=== PATIENT | female | born 1975 | race Caucasian/White ===

== ENCOUNTER 2016-10-23 19:01 | Inpatient (IN) | payer OTHER ==
[~2016-10-23] VITALS: Ht 167.6 cm; Wt 73.0 kg
[~2016-10-23 19:01] MED LIST: AMB5 PO; COL100 PO; MOM PO; MYL80 CH; REGL PO
--- NOTE | 2016-10-23 19:15 | NUR ---
REC'D A 41 Y/O FEMALE BIB [facility] FOR ALOC. PER MEDIC, FAMILY STS PT COLLAPSED TO FLOOR WHILE TRYING TO GIVE A FAMILY MEMBER A HUG. PER MEDIC, UPON ARRIVAL PT WITH AGONAL RESPS AT 4 BREATHS PER MIN AND O2 SAT <50%. BVM WAS INTIATED THROUGH NPA AND NARCAN 4MG IVP WAS GIVEN. PER MEDIC, PT BECAME MORE AROUSABLE S/P NARCAN ADMINISTRATION BUT STILL UNRESPONSIVE TO VERBAL OR PAINFUL STIMULI. UPON ARRIVAL TO ED, PT ALOC, TACHYPNEIC BUT RESPS EVEN AND UNLABORED. PT PLACED ON SUPERVISOR ELECTRON TUBE PROCESSING AND PULSE OX AT 98%. MSE COMPLETED BY DR LIN. WILL CARRY OUT ORDERS.
--- NOTE | 2016-10-23 19:30 | NUR ---
PT MEDICATED PER ORDER. PLEASE SEE EMAR.
[2016-10-23 19:42] LABS: BASOPHIL % 0.3 % (0-2); PLATELET COUNT 342 x10^3mcL (130-400); RED CELL DISTRIBUTION WIDTH 18.7 % (11.5-14.5)
--- NOTE | 2016-10-23 19:45 | NUR ---
PT RESTLESS, ATTEMPTING TO GET OFF GURNEY AND ALOC. PT FALL RISK. PER DR DELIA DAVIDSON, PLACE PT IN SOFT WRIST RESTRAINTS.
[2016-10-23 19:50] LABS: CALCIUM 8.2 mg/dL (8.5-10.1); CARBON DIOXIDE 24.3 mmol/L (21-32); CHLORIDE SERUM 105 mmol/L (98-107); GFR1 > 60 mL/min; GLUCOSE SERUM 182 mg/dL (74-106); POTASSIUM SERUM 4.4 mmol/L (3.5-5.1); SODIUM SERUM 140 mmol/L (136-145)
[2016-10-23 19:58] LABS: ALKALINE PHOSPHATASE 58 U/L (46-116); ALT/SGPT 22 U/L (14-59); AST/SGOT 28 U/L (15-37); BILIRUBIN TOTAL 0.2 mg/dL (0.20-1.00); TOTAL PROTEIN, SERUM 7.3 g/dL (6.4-8.2)
[2016-10-23 19:59] LABS: ALBUMIN 3.3 g/dL (3.4-5.0); CHOLESTEROL 290 mg/dL (<200)
--- NOTE | 2016-10-23 19:59 | NUR ---
PT TAKEN TO RADIOLOGY VIA [facility] FOR CT EXAM
--- NOTE | 2016-10-23 20:22 | NUR ---
PT ARRIVED BACK FROM CT EVEN MORE RESTLESS AND MAKING INCOMPREHENSIBLE WORDS AND SOUNDS. PT MEDICATED PER ORDER. PLEASE SEE EMAR.
--- NOTE | 2016-10-23 20:48 | NUR ---
PT STARTING TO TALK AND STS SHE TOOK 15 SEROQUEL DUE TO UNKNOWN REASON. PT DENIES SUICIDAL IDEATION. DR LIN INFORMED.
--- NOTE | 2016-10-23 21:25 | NUR ---
PT ASLEEP ON GURNEY IN POSITION OF COMFORT. RESPS EVEN AND UNLABORED. PT ON HYDROPRESS OPERATOR AND PULSE OX. WILL CONT TO MONITOR.
[2016-10-23 21:33] LABS: UA SPECIFIC GRAVITY >=1.030 (1.005-1.035); microscopic required? YES; urine erythrocyte NEGATIVE (NEGATIVE)
[2016-10-23 21:59] LABS: AMPHETAMINE QUAL UR NONE DETECTED (NEG <=1000)
--- NOTE | 2016-10-23 22:17 | NUR ---
HEARD PT YELLING OUT FOR NURSE. WENT IN TO ROOM TO FIND PT SITTING AT EDGE OF [place] WITH RESTRAINTS TAKEN OFF. PT REQUESTING WATER. INSTRUCTED TO TO LAY BACK ON [facility] FOR SAFETY. PT VERBALIZED UNDERSTANDING. PT MOVED TO BED 3 IN CLOSER VIEW OF NURSES STATION. PT ON PNEUMATIC TUBE FITTER AND PULSE OX. PT VERBALIZED WILL STAY ON [place].
--- NOTE | 2016-10-23 23:14 | NUR ---
REPORT CALLED TO MARTA BLACKMON TO ASSUME CARE OF PT ON TELE.
--- NOTE | 2016-10-23 23:20 | NUR ---
PT TRAMSFERRED TO TELE
--- NOTE | 2016-10-23 23:22 | NUR ---
RECEIVED FROM ER,PUT IN ROOM 242B,ALOC.
[2016-10-23 23:34] VITALS: BP 104/60
--- NOTE | 2016-10-23 23:50 | NUR ---
PATIENT ADMITTED AT 2322.PATIENT IS ALOC.REPORT FROM ER SHE TOOK [address]BUT THEN TOLD [address] BALL SHE TOOK SOMETHING ELSE.UDS IN ER SHOWS OPIATES.ANSWRS QUESTION,SAYS SHE IS IN THE HOSPITAL.MED HX OF BIPOLAR,HEP C.MOTHER CHADWICK CALLED AT THIS TIME,SHE DOES NOT LIVE WITH PATIENT,DID NOT REALLY KNOW WHAT HAPPENED.DR BALL ALREADY TALKED TO PATIENT.WILL FOLLOW UP ADMIT ORDER.WILL INITIATE PLAN OF CARE.
--- NOTE | 2016-10-24 00:14 | NUR ---
CHARGE NURSE LUCIANA MADE AWARE THAT THIS PATIENT IS ALTERED BUT SHE SAYS THAT SHE TOOK SEROQUEL,REPORT FROM ER,BUT THEN NOT SURE AGAIN WHAT MEDS.
--- NOTE | 2016-10-24 00:26 | NUR ---
PATIENT SAYS SHE WANTED TO EAT,REGULAR DIET.
--- NOTE | 2016-10-24 01:06 | NUR ---
NS AT 50 CC/ HOUR INFUSING WELL.
[2016-10-24 01:18] LABS: FREE T4 0.75 ng/dL (0.76-1.46); FREE THYROXINE INDEX 2.1 ug/dL (1.4-4.5); T4(THYROXINE) 6.9 ug/dL (4.7-13.3)
[2016-10-24 01:25] LABS: CHOLESTEROL/HDL RATIO 5.7
--- NOTE | 2016-10-24 02:28 | NUR ---
GIVEN SANDWICH AND SODA,STARVING SHE SAID.
[2016-10-24 02:42] LABS: T3 TOTAL 1.39 ng/mL
--- NOTE | 2016-10-24 04:46 | NUR ---
ASKED AT THIS TIME IF SHE REMEMBER ANYTHING BEFORE COMING TO HOSPITAL,SHE NO.SHE ALSO STATED SHE IS NOT DIABETIC.LIKES TO EAT,ALWAYS STARVING.
--- NOTE | 2016-10-24 04:54 | NUR ---
PATIENT HAS PAK CATH FROM ER,SHE DOES NOT LIKE IT,DISCONTINUED.ASSISTED IN RESTROOM,RUSHING TO GET UP,SITTER ASSISTED HER FOR SAFETY.
--- NOTE | 2016-10-24 04:57 | NUR ---
FOUND OUT SHE IS ON HER MONTHLY PERIOD.
[2016-10-24 05:02] VITALS: BP 101/51
--- NOTE | 2016-10-24 05:58 | NUR ---
PATIENT I AND O MEASURED.NS AT 50 CC/ HOUR.WILL ENDORSE TO NEXT SHIFT.STILL CANNOT REMEMBER ANYTHING HOW SHE GOT HERE.
--- NOTE | 2016-10-24 06:27 | NUR ---
LAB/PATIENT REFUSED AT THIS TIME,WILL TRY AGAIN LATER.
[2016-10-24 09:38] VITALS: BP 99/60
--- NOTE | 2016-10-24 13:13 | NUR ---
AT 0710 - RECEIVED PATIENT FROM NIGHT NURSE. PATIENT AWAKE, ALERT APPEARS FORGETFUL, BUT SPEECH CLEAR AND ABLE TO ANSWER QUESTIONS. CO-OPERATIVE AT THIS TIME. IV INFUSING NS AT 50ML/HR. 1:1 SITTER AT BEDSIDE. AT 0752 - SEEN BY DR BURDICK DURING MORNING ROUNDS. MEDICAL TEAM DOCTORS, SANDRA RODRIGUEZ AND MYSELF PRIMARY NURSE ALSO PRESENT. DR BURDICK SPOKE WITH PATIENT ABOUT WHAT MEDICATIONS SHE MAY HAVE TAKEN THAT BROUGHT HER TO HOSPITAL. PATIENT ADMITTED THAT SHE WAS TRYING TO HURT HERSELF. AT 0818 - RECEIVED CALL FROM GREG IN POISON CONTROL. UPDATED ON PATIENT CONDITION AND LATEST VS. PATIENT WILL BE RELEASED FROM POISON CONTROL BUT THEY CAN BE CONTACTED WITH ANY NEEDS. AT 1000 - PATIENT REMAINS QUIET AND COOPERATIVE. GOOD APPETITE. AT 1155 - IV FORM LAC CAME OUT. IV RESITED IN RFA AND IV IFNUSION OF NS RESUMED AT 50ML/HR.
--- NOTE | 2016-10-24 15:54 | NUR ---
SEEN BY DR VERA. PATIENT MEETS 5150 CRITERIA AND IS TO TRANSFER TO [facility] ONCE MEDICALLY CLEARED.
--- NOTE | 2016-10-24 17:55 | NUR ---
RECEIVED CALL FROM LETTY AT [facility] - THEY WILL NOT ACCEPT PATIENT ACCORDING TO THEM, SHE IS "PROGRAM INAPPROPRIATE".
--- NOTE | 2016-10-24 17:59 | NUR ---
PATIENT AWAKE AND MOSTLY CO-OPERATIVE BUT REFUSING TO HAVE VITAL SIGNS CHECKED. EATING WELL. IV INFUSING NS AT 50ML/HR. VOIDING IN BATHROOM. 1:1 SITTER REMAINS AT BEDSIDE. WILL ENDORSE CARE TO NIGHT NURSE.
--- NOTE | 2016-10-24 19:48 | NUR ---
RECEIVED REPORT FROM NEYMAR GONZALEZ. PT RESTING IN BED COMFORTABLY IN NO ACUTE DISTRESS OR DISCOMFORT. AAOX3. DENIES OF JAIME/DIZZINESS. ON TELE MON 4 SR. DENIES OF ANY CHEST DISCOMFORT. PER PULSES STRONG. NEG ON EDEMA. IN RA WTIH SAT OF 100%. BREATHING EVENLY AND UNLABORED. NO SOB NOTED. LUNGS CTA. BS ACTIVE. ABD SOFT AND NON DISTENDED. LAST BM TODAY 10/24/16. VOIDS FREELY TO THE BATHROOM WITHOUT ANY PAIN. GEN WEAKNESS. AMBULATES STEADILY. SKIN DRY AND INTACT. DENIES OF ANY PAIN. IV ON RFA PATENT. PT UNDER 5150 PER PSYCH EVALUATION. PT ON ONE TO ONE SITTER. ADMITS TO STILL BE HAVING AN ACTIVE PLAN OF SUICIDE WITH A STATEMENT OF "I JUST WANNA GO HOME AND TAKE MY PILLS". WILL CONT TO CLOSELY MONITOR PT. INSTRUCTED PT TO CALL FOR ANY NEEDS/ASSISTANCE OF IF SUICIDAL SYMPTOMS HAVE CHANGED OR GETTING WORSE. SAFETY MEASURES ENSURED. CALL LIGHT WITHIN REACH.
[2016-10-24 20:36] VITALS: BP 133/79
--- NOTE | 2016-10-25 05:00 | NUR ---
PT SLEPT COMFORTABLY THROUGH OUT THE NIGHT. ENFORCED 5150 PRECAUTION AND STAYED WITH ONE TO ONE SITTER. WAS IN NO ACUTE DISTRESS OR DISCOMFORT. SAFETY MEASURES WERE ENSURED. CALL LIGHT WITHIN REACH.
[2016-10-25 05:07] VITALS: BP 143/81
[2016-10-25 09:00] VITALS: BP 124/79
[2016-10-25 13:40] VITALS: BP 127/94
--- NOTE | 2016-10-25 13:41 | NUR ---
AT 0710 - RECEIVED PATIENT FROM NIGHT NURSE. PATIENT SLEEPING. RESPIRATIONS REGULAR. MONITOR SHOWING SINUS RHYTHM; RATE 80'S IV INFUSING NS AT 50ML/HR AT 0745 - PATIENT AWAKE, ALERT AND ORIENTED TO PERSON, PLACE AND TIME.HAS EATEN BREAKFAST. CO-OPERATIVE. 1:1 SITTER WITH PATIENT. 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 RECEIVED ORDERS FOR TREATMENT. AT 0900 - PATIENT SAID THAT SHE WANTED TO LEAVE THE HOSPITAL. SPOKE WITH HER ABOUT REASONS FOR STAYING. EXPLAINED TO PATIENT THAT THE PSYCHOLOGIST WANTS HER TO GO TO A [facility] FOR TREATMENT. SHE VERBALIZED UNDERSTANDING. AT 0955 - PATIENT SAID THAT SHE WANTED TO LEAVE A. CALL PLACED FOR DR BARTLETT. DR BARTLETT SPOKE WITH PATIENT AND PATIENT AGREED TO STAY. AT 1030 - MEDICATED WITHPO ATIVAN PER EMAR FOR SLIGHT RESTLESSNESS. ALSO NICODERM PATCH APPLIED TO SANTHOSH. PATIENT GIVEN CHLORHEXIDINE BODY WASH. AT 1230 - EATING LUNCH. APPEARS CALM AT THIS TIME.
--- NOTE | 2016-10-25 16:04 | NUR ---
QUIET AFTERNOON. PATIENT APPEARS TO BE SLEEPING A LOT OF THE TIME. VSS. PATIENT IS NOW OFF TELEMONITORING. STATUS CHANGED TO MED-SURG.
[2016-10-25 18:17] VITALS: BP 121/77
--- NOTE | 2016-10-25 18:44 | NUR ---
QUIET AFTERNOON. PATIENT APPEARS CALMA DN COOPERATIVE. HAS HAD 2 DOSES OF ATIVN PER EMAR. IV INFUSING NS AT 50ML/HR. AMBULATES IN ROOM. 1:1 SITTER REMAINS WITH PATIENT. WILL ENDORSE CARE TO NIGHT NURSE.
--- NOTE | 2016-10-25 19:36 | NUR ---
PT. AWAKE, ALERT, ORIENTED X4. CONVERSATION APPROPRIATE. DENIES HEADACHE OR DIZZINESS. BREATH SOUNDS CLEAR THROUGHOUT LUNG AVINA, RESP. EVEN, UNLABORED. NO SOB NOTED. DENIES CHESTPAIN. NO EDEMA TO BLE. PEDAL PULSES STRONG LEXUS. ABD. SOFT AND ROUND, BOWEL SOUNDS ACTIVE. IVF NS AT 50CC/HR. PT. FOLLOWING COMMANDS. DENIES ANY SUICIDAL IDEATIONS AT PRESENT. SITTER AT BEDSIDE. PT. BEING MONITORED CLOSELY.
[2016-10-25 20:54] VITALS: BP 124/81
--- NOTE | 2016-10-26 02:16 | NUR ---
PT. RESTING QUIETLY, EYES CLOSED AND APPEARS TO BE SLEEPING. NO C/O PAIN THUS FAR. IVF NS INFUSING WELL AT 50CC/HR. SITTER REMAINS AT BEDSIDE. CALL LIGHT WITHIN REACH.
[2016-10-26 06:27] VITALS: BP 116/77
[2016-10-26 08:00] VITALS: BP 122/82
--- NOTE | 2016-10-26 09:03 | NUR ---
DR. RUIZ IS MADE AWARE OF WBC23.5, PHOS 2.4 AND MAG 1.5. AWAITING FOR NEW ORDERS.
[2016-10-26 10:41] VITALS: BP 126/81
--- NOTE | 2016-10-26 13:30 | NUR ---
PT REFUSED BP DR. ROTH NOTIFIED.
--- NOTE | 2016-10-26 14:39 | NUR ---
PT RESTING IN BED WITH SITTER AT BEDSIDE. BED AT LOW AND CALL LIGHT WITHIN REACH.
--- NOTE | 2016-10-26 17:00 | NUR ---
PT REFUSED VITAL SIGNS. TRI FOX IS AWARE.
--- NOTE | 2016-10-26 18:52 | NUR ---
PT IS AAOX4 ABLE TO FOLLOW VERBAL COMMANDS. ON RA NO SIGNS OF SOB OR ACUTE DISTRESS. PT DENIES WANTING TO HURT SELF. FORREST VIVEROS IN ROOM WITH PT. WILL ENDORSE ALL CARE TO ONCOMING RN. BED AT LOW AND CALL LIGHT WITHIN REACH.
[2016-10-26 19:58] VITALS: BP 112/79
--- NOTE | 2016-10-26 19:59 | NUR ---
RECEIVED PT FORM AM NURSE IN NO ACUTE DISTRESS, LAYING IN BED COMFORTABLY, A/OX4, RESPONDS APPROPRIATELY, DENIES ANY PAIN OR DISCOMFORT AT THIS TIME, PULSES PALPABLE AND EVEN, NO EDEMA NOTED, LUNGS CLEAR ON RA, BREATHING EVEN AND UNLABORED, BS ACTIVE X4 QUADRANTS, ABD SOFT AND ROUND, VOIDS FREELY, GENERALIZED WEAKNESS, AMBULATORY, SKIN WARM DRY AND INTACT, IV INTACT AND PATENT TO RFA, BED IN LOWEST POSITION, CALL LIGHT INSTRUCTIONS REINFORCED, WILL CONT TO MONITOR.
[2016-10-27 05:42] VITALS: BP 120/83
--- NOTE | 2016-10-27 05:58 | NUR ---
SLEPT PERIODICALLY THROUGHOUT SHIFT. NO SIGNFIICANT CHANGES, ALL NEEDS MET AND ATTENDED TO, REMAINS CALM AND COOPERATIVE, WILL CONT TO MONITOR AND ENDORSE ALL CARE TO ONCOMING NURSE.
--- NOTE | 2016-10-27 08:00 | NUR ---
RECEIVED PT IN BED ALERT AND ORIENTED X4. DENIES ANY PAIN OR DISCOMFORT. DENIES SUICIDAL IDEATIONS AT THIS TIME. BREATHING EVEN AND UNLABORED ON RA. DENIES ANY GI UPSET. AMBULATORY. SKIN CDI. SITTER AT BEDSIDE. INSTRUCTED TO USE CALL LIGHT WHEN IN NEED OF ANY ASSISTANCE.
[2016-10-27 09:23] VITALS: BP 113/70
[2016-10-27 16:57] VITALS: BP 106/79
--- NOTE | 2016-10-27 18:10 | NUR ---
PT SEEN BY DR VERA.
[2016-10-27] MEDS ORDERED: PROZ10 PO (18:26)
[2016-10-27] MEDS ORDERED: THERA TABS1 TAB PO (18:27)
[2016-10-27] MEDS ORDERED: HIBICLENS118 ML TOP (18:27)
[2016-10-27] MEDS ORDERED: BACO TOP (18:27)
[2016-10-27] MEDS ORDERED: GLU500 PO (18:28)
[2016-10-27 18:35] VITALS: BP 106/79
--- NOTE | 2016-10-27 18:56 | NUR ---
IV DC'D. DISCHARGE INSTRUCTIONS AND PRESCRIPTIONS GIVEN AND EXPLAINED TO PT, PT VERBALIZED UNDERSTANDING. WAITING FOR FRIEND TO PICK HER UP.
--- NOTE | 2016-10-27 19:10 | NUR ---
PT DISCHARGED, ACCOMPANIED OFF FLOOR AMBULATORY BY DEBEADER.
== END 2016-10-27 19:12 | disposition home or self-care (01) | DRG 816 ==
LOC: ED 19:01 → DU 22:07 → MU 22:07 → DU 23:20 → MU 10-25 10:42
PROVIDERS: Emergency Medicine; ADMIT Family Medicine
DX: T40.0X2A Poisoning by opium, intentional self-harm, initial encounter (principal); N17.0 Acute kidney failure with tubular necrosis; G92 Toxic encephalopathy; E44.1 Mild protein-calorie malnutrition; B18.2 Chronic viral hepatitis C; D64.9 Anemia, unspecified; F31.5 Bipolar disorder, current episode depressed, severe, with psychotic features; F17.210 Nicotine dependence, cigarettes, uncomplicated; F14.10 Cocaine abuse, uncomplicated; E78.5 Hyperlipidemia, unspecified; E03.9 Hypothyroidism, unspecified; R45.851 Suicidal ideations; N17.9 Acute kidney failure, unspecified; E11.65 Type 2 diabetes mellitus with hyperglycemia; I10 Essential (primary) hypertension; Y92.018 Other place in single-family (private) house as the place of occurrence of the external cause; Z22.322 Carrier or suspected carrier of Methicillin resistant Staphylococcus aureus; Z68.26 Body mass index [BMI] 26.0-26.9, adult; Z79.899 Other long term (current) drug therapy; Z88.5 Allergy status to narcotic agent
CPT/HCPCS: 82962; 83880; 84439; G0480; J1200; J1630; J2060; J7030